=== PATIENT | male | born 1950 | race Caucasian/White ===

== ENCOUNTER 2019-10-07 23:07 | Emergency (ER) | payer OTHER, MEDICAID ==
[~2019-10-07] VITALS: Ht 175.3 cm; Wt 81.6 kg
[2019-10-07 23:15] VITALS: BP_SYST 99
[2019-10-08] MEDS ORDERED: LAM100 PO (00:10)
[2019-10-08] MEDS ORDERED: DIVA500T4 PO (00:10)
[2019-10-08] MEDS ORDERED: CALMO120 TP (00:10)
[2019-10-08] MEDS ORDERED: FOLI-43 PO (00:10)
[2019-10-08] MEDS ORDERED: BISA10SU61 RC (00:10)
[2019-10-08] MEDS ORDERED: PETR18JE3 TP (00:10)
[2019-10-08] MEDS ORDERED: MELA3TAB64 PO (00:10)
[2019-10-08] MEDS ORDERED: NA P133E41 RC (00:10)
[2019-10-08] MEDS ORDERED: LACT10SO6 PO (00:10)
[2019-10-08] MEDS ORDERED: CHOL400T PO (00:10)
[2019-10-08] MEDS ORDERED: VEN2 PO (00:10)
[2019-10-08] MEDS ORDERED: SODIUM CHLORIDE PO ×3 (00:10)
[2019-10-08] MEDS ORDERED: DIME237L2 TP (00:10)
[2019-10-08] MEDS ORDERED: LEVO330T6 PO (00:10)
[2019-10-08] MEDS ORDERED: ACET-2165 PO (00:10)
[2019-10-08] MEDS ORDERED: POLY17PO4 PO (00:10)
[2019-10-08] MEDS ORDERED: CALC200T47 PO (00:10)
[2019-10-08] MEDS ORDERED: GUAI177L5 PO (00:10)
[2019-10-08] MEDS ORDERED: DOCU250C14 PO (00:10)
[2019-10-08] MEDS ORDERED: LAM25 PO (00:10)
[2019-10-08] MEDS ORDERED: PHEDM120 PO (00:10)
[2019-10-08] MEDS ORDERED: OMEP20CA11 PO (00:10)
[2019-10-08] MEDS ORDERED: LOT1%CR30 TP (00:10)
[2019-10-08] MEDS ORDERED: ASCO500T20 PO (00:10)
[2019-10-08 01:00] LABS: MEAN CORPUSCULAR HEMOGLOBIN 29 pg (27-31)
[2019-10-08 01:08] LABS: BASOPHILS % (AUTO) 0.4 % (0.0-2.0); EOSINOPHILS # (AUTO) 0.3 K/uL (0.0-0.4); EOSINOPHILS % (AUTO) 2.2 % (0.0-4.0); LYMPHOCYTES # (AUTO) 1.8 K/uL (1.0-5.5); LYMPHOCYTES % (AUTO) 13.3 % (20.5-51.5); MEAN CORPUSCULAR HGB CONC 32 % (32-36); MEAN CORPUSCULAR VOLUME 91 fL (79.0-98.0); MONOCYTES # (AUTO) 2.6 K/uL (0.0-1.0); MONOCYTES % (AUTO) 18.7 % (1.7-9.3); NEUTROPHILS # (AUTO) 8.9 K/uL (1.8-7.7); NEUTROPHILS % (AUTO) 65.4 % (40.0-70.0); PLATELET COUNT (AUTO) 269 K/uL (130-430); RED BLOOD CELL COUNT(AUTO) 2.69 MIL/uL (4.2-6.2); RED CELL DISTRIBUTION WIDTH 15.5 % (9.0-15.0); WHITE BLOOD COUNT (AUTO) 13.7 K/uL (4.8-10.8)
[2019-10-08 01:09] LABS: CALCIUM 10.9 mg/dL (8.4-11.0); CHLORIDE 102 mmol/L (98-107); CREATININE 1.18 mg/dL (0.55-1.30); GLUCOSE 98 mg/dL (70-99); POTASSIUM 5.3 mmol/L (3.5-5.1); SODIUM SERUM 133 mmol/L (136-145); UREA NITROGEN, BLOOD 23 mg/dL (8-21)
[2019-10-08 01:11] LABS: HEMATOCRIT 24.6 % (36-54); HEMOGLOBIN 7.9 g/dL (14.0-18.0)
[2019-10-08 01:15] LABS: ALANINE AMINOTRANSFERASE 20 U/L (12-78); ALBUMIN 1.9 g/dL (3.4-4.8); ASPARTATE AMINOTRANSFERASE 29 U/L (10-37); TOTAL BILIRUBIN 0.2 mg/dL (0.0-1.0)
[2019-10-08 01:20] LABS: ANION GAP < 3 (5-15); GFR AFRICAN AMERICAN 79 mL/min (>90)
[2019-10-08] MEDS ORDERED: NACL 0.9% 1,000 ML IV ONE (01:38)
[2019-10-08] MEDS ORDERED: LevALBUTEROL HCL 1.25 MG/0.5 ML *CONC.* VIAL.NEB (XOPENEX CONC.) INH ONE (01:45)
[2019-10-08] MEDS ORDERED: IPRATROPIUM BROM 0.5 MG/2.5 ML VIAL.NEB (ATROVENT) INH ONE (01:45)
[2019-10-08] MEDS ORDERED: AZITHROMYCIN 500 MG in NS 250 ML IV ONE (01:45)
[2019-10-08] MEDS ORDERED: AZITHROMYCIN 500 MG/VIAL (ZITHROMAX) IV ONE (02:08)
[2019-10-08 03:40] VITALS: BP_SYST 109
== END 2019-10-08 03:40 | disposition home or self-care (01) ==
LOC: EDSEX 23:07 → SED 23:07
DX: J06.9 Acute upper respiratory infection, unspecified (principal); D64.9 Anemia, unspecified; D70.8 Other neutropenia; R06.02 Shortness of breath; J44.9 Chronic obstructive pulmonary disease, unspecified; Z88.6 Allergy status to analgesic agent
CPT/HCPCS: 36415; 71045; 80053; 83880; 84484; 85025; 93005; 94640; 96365; 96366; 99285; J0456; J7030; J7612